=== PATIENT | female | born 1980 | race Caucasian/White ===

== ENCOUNTER 2017-02-02 01:36 | Observation (INO) | payer OTHER ==
[~2017-02-02] VITALS: Ht 160 cm; Wt 92.4 kg
--- NOTE | ~2017-02-02 | OR ---
PATIENT'S NAME: GOPI DA SILVA [facility] AGE: 37 Y [address] ROOM: [place] [address] LOCATION: GPED ADMIT DATE: 02/02/2017 OR/Procedure Report DISCHARGE DATE: FAMILY PHYSICIAN: Houston Cuellar ATTENDING PHYSICIAN: MICHAEL SKAGGS SURGEON: Rafael Colon MD WASHCOAT WIPER: DATE OF PROCEDURE: 02/02/2017 PREOPERATIVE DIAGNOSES: 1. Distal right ureter stone. 2. Urinary tract infection. POSTOPERATIVE DIAGNOSES: 1. Distal right ureter stone. 2. Urinary tract infection. PROCEDURES PERFORMED: 1. Cystoscopy. 2. Right stent placement. ANESTHESIA: General. COMPLICATIONS: None. INDICATION FOR PROCEDURE: The patient is a 37-year-old female with an 8.5 mm distal right ureter stone with urinary tract infection and low-grade fevers of 100. The patient has also had previous right ureter reimplant. DETAILS OF PROCEDURE: After informed consent was obtained, the patient was taken to the operating room. A general anesthetic was applied, and she was placed in a dorsal lithotomy position. The groin area was prepped and draped in the normal sterile fashion. Cystoscope was introduced into the urethra and bladder without difficulty. Because of her implant and current infection, it was difficult to locate her right ureteral orifice. After some time, I was able to locate the orifice and placed a yellow Flexi-Tip catheter in the orifice and advanced the guidewire up into the renal pelvis. I then removed the Flexi-Tip catheter and passed a 4.8 multi-length ureteral stent over the guidewire up into the renal pelvis. Radiographic imaging showed good positioning of the stent. The patient tolerated her procedure well and was transferred to the recovery room in stable condition. We will plan ureteroscopy in the future once her infection has resolved. PATIENT'S NAME: GOPI DA SILVA [facility] AGE: 37 Y [address] ROOM: [place] [address] LOCATION: GPED ADMIT DATE: 02/02/2017 OR/Procedure Report DISCHARGE DATE: FAMILY PHYSICIAN: Houston Cuellar ATTENDING PHYSICIAN: MICHAEL SKAGGS MD PAULETTE MANSFIELD/milly /[id number] CC: CLOVER Camara d: 02/02/17 1431 t: 02/17/17 1915, OPERATIVE SUMMARY
--- NOTE | ~2017-02-02 | HP ---
PATIENT'S NAME: GOPI DA SILVA [facility] AGE: 37 Y [address] ROOM: [id number] [place], [place] [address] LOCATION: GPED ADMIT DATE: 02/02/2017 History & Physical DISCHARGE DATE: FAMILY PHYSICIAN: Houston Cuellar ATTENDING PHYSICIAN: MICHAEL SKAGGS DATE OF SERVICE: CHIEF COMPLAINT: Abdominal pain. HISTORY OF PRESENT ILLNESS: This is a 37-year-old, female transferred here from [place] for higher level of care. This is a 37-year-old, female who says that yesterday around 1 p.m., when she was at her daughter's dodgeball tournament, she suddenly felt this diffuse abdominal pain, more intense in the periumbilical area associated with chills, and also left lower quadrant pain radiating to her left groin area. When she went home, she took her temperature. She was having low-grade fever at 100.2. She also felt nauseous, she vomited once without blood. She took her temperature again, it was 103.3. At the same time, she was also feeling some joint pain in her bilateral knees and also in bilateral hips. She just feels weak in general and also chills and the pain was getting worse in the periumbilical area and the left lower quadrant area with radiation to the left groin. That is why she went to the hospital in [place] and over there, a CT abdomen and pelvis with contrast showed moderate right-sided hydroureteronephrosis secondary to an 8.5 mm calculus, right distal ureter at the ureterovesical junction. Fatty infiltration in the liver. Prior cholecystectomy. Unremarkable air-filled appendix without surrounding inflammatory change and this was a preliminary report. The patient was sent here for higher level of care. The patient denies any other symptoms and currently her only complaint is the periumbilical and left lower quadrant pain with radiation to the left groin area. REVIEW OF SYSTEMS: As mentioned in the history of present illness. All other systems reviewed negative except as mentioned in the history of present illness. PAST MEDICAL HISTORY: Multiple bilateral nephrolithiasis in the past. According to the patient, this is a 17th time. She also had multiple stents placed in bilateral ureters from the nephrolithiasis in the past. The most recent stent was placed in the right ureter [place] [address] Tejada, according to the patient. At one point, the patient also had status post ureterovesical reimplantation due to urinary reflux according to the patient. PATIENT'S NAME: GOPI DA SILVA [facility] AGE: 37 Y [address] ROOM: [place] [address] LOCATION: GPED ADMIT DATE: 02/02/2017 History & Physical DISCHARGE DATE: FAMILY PHYSICIAN: Houston Cuellar ATTENDING PHYSICIAN: MICHAEL SKAGGS Crohn disease with daily diarrhea nonbloody. ALLERGIES: PENICILLIN, CIPROFLOXACIN, SULFA, AND BACTRIM WHICH ALL CAUSES HIVES WITH SEVERE SKIN BREAK OUT. MACROBID, WHICH CAUSES CROHN DISEASE FLARE. MORPHINE AND THE OTHER NARCOTICS WHICH CAUSES SEVERE RESPIRATORY DEPRESSION. HOME MEDICATIONS: Currently is being reconciled. SOCIAL HISTORY: The patient smokes about half pack per day for the last 4 years and still smokes. She denies any alcohol or any illegal drug use. PAST SURGICAL HISTORY: 1. Status post cholecystectomy. 2. Status post multiple bilateral nephrolithiasis and stents placed in the past. 3. Status post bilateral fallopian tubal ligation. FAMILY HISTORY: Father is healthy. Mother from myocardial infarction at the age 47. PHYSICAL EXAMINATION: VITAL SIGNS: At the time of my dictation, temperature 98.9, heart rate 90, respiration rate 22, blood pressure 105/69, MAP of 84, saturation 98% on room air. GENERAL APPEARANCE: Alert and oriented x3, in no acute distress. A very pleasant female. HEENT: Pupils are equally round and reactive to light. Extraocular muscles intact. Anicteric sclerae. Nasal turbinates are normal bilaterally. Moist oral mucosa. NECK: No JVD. No cervical lymphadenopathy. No neck stiffness. CARDIOVASCULAR: Regular rate and rhythm. Normal S1, S2. No murmur, no rubs, no gallops. RESPIRATORY: Clear. ABDOMEN: Obese, mildly tender to palpation in the periumbilical and in the left lower quadrant area, no abdominal rigidity, no rebound tenderness, bowel sounds present, could not appreciate any mass. No ascites. EXTREMITIES: No edema in upper or lower extremities. SKIN: No ulcer, no rash, no cyanosis. MUSCULOSKELETAL: Range of motion intact. No joint pain. No muscle pain. NEUROLOGIC: Grossly nonfocal. PATIENT'S NAME: GOPI DA SILVA [facility] AGE: 37 Y [address] ROOM: [address] [place], [place] [address] LOCATION: [facility] ADMIT DATE: 02/02/2017 History & Physical DISCHARGE DATE: FAMILY PHYSICIAN: Houston Cuellar ATTENDING PHYSICIAN: MICHAEL SKAGGS GENITOURINARY: No costovertebral angle tenderness to palpation. LABORATORY DATA: Currently, labs are pending. Laboratory from the outside facility: CBC, BMP, and liver function testing are unremarkable. White blood cells 8.3, hemoglobin 12.4, hematocrit 39.7, platelet 221. Creatinine 0.83, GFR more than 60. Glucose 103, calcium 8.3, total bilirubin 0.5, AST 11, ALT 15, alkaline phosphatase 69, CRP 3, total protein 6.7, albumin 3.4, globulin 3.3, amylase 38, lipase 113. Urinalysis show 150 urine blood, urine nitrite positive, 100 of urine leukocyte esterase, and 40-50 urine white blood cells. IMAGING STUDIES: As mentioned in the history of present illness. ASSESSMENT AND PLAN: 1. Regarding her moderate right-sided hydroureteronephrosis secondary to 8.5 mm calculus right distal ureter at the ureterovesical junction based on the preliminary report of the CT of the abdomen and pelvis with contrast on admission from the outside facility: Consult Urology in the morning. N.p.o. Likely, the patient will be taken to the operating room in the morning for stent. I will cover the patient with IV meropenem. I will check her blood culture 2 sets right now. Check her lactic acid and the procalcitonin and repeat labs again in the morning. N.p.o. Pain control with Demerol intramuscular given that this is only medication that the patient can tolerate and actually works for the patient. Tylenol as well for pain or fever. Avoid other narcotics given the patient developed a severe respiratory depression and also somnolence. IV fluid hydration with normal saline and D5 for maintenance rate. I will check a urinalysis again and also urine culture. Further plan depends on clinical course. 2. Regarding her Crohn disease: Currently not in flare. She chronically has diarrhea. This is not new. CT scan of the abdomen and pelvis from the outside facility did not show any colitis. 3. Regarding her deep vein thrombosis prophylaxis: Compression devices in anticipation for procedure in the morning. I will avoid any pharmacological deep vein thrombosis prophylaxis for now in anticipation for urological procedure in the morning. Time spent in care on the day of admission 40 minutes including chart review, interviewing, and examining the patient, addressing all the question and concern that the patient had, and going over the plan of care with the nurse and with the patient. PATIENT'S NAME: GOPI DA SILVA [facility] AGE: 37 Y [address] ROOM: [place] [address] LOCATION: [facility] ADMIT DATE: 02/02/2017 History & Physical DISCHARGE DATE: FAMILY PHYSICIAN: Houston Cuellar ATTENDING PHYSICIAN: MICHAEL SKAGGS MD LEONCIO LOVELL/milly /[id number] D: [id number] T: [id number] HISTORY & PHYSICAL
--- NOTE | ~2017-02-02 | CON ---
PATIENT'S NAME: GOPI DA SILVA [facility] AGE: 37 Y [address] ROOM: [place] [address] LOCATION: GPED ADMIT DATE: 02/02/2017 Consultation DISCHARGE DATE: FAMILY PHYSICIAN: Houston Cuellar ATTENDING PHYSICIAN: MICHAEL SKAGGS DATE OF CONSULTATION: 02/02/2017 HISTORY OF PRESENT ILLNESS: The patient is a 37-year-old female transferred from [place] with an 8.5 mm distal right ureteric stone at the ureterovesical junction. The patient had the acute onset of right flank pain with low-grade temperature of 100 yesterday afternoon. The patient was seen in the emergency room again where abdominal and pelvic CT scan revealed a stone with moderate right-sided hydronephrosis. The patient's urine was also nitrite positive. She has a long history of nephrolithiasis status post multiple ESWLs with Dr. Tejada. Since the patient has obstructive stone with infection, I discussed cystoscopy with stent placement with ureteroscopy in the future. Risks and benefits were discussed. PAST MEDICAL HISTORY: Again, significant for multiple bilateral nephrolithiasis, and Crohn disease. PAST SURGICAL HISTORY: Include ureterovesical reimplant, bilateral ESWLs, stone extraction with stent placements, cholecystectomy, and tubal ligation. MEDICATIONS: Include, 1. NicoDerm patch. 2. Florastor 250 mg twice daily. ALLERGIES: PENICILLIN, CIPROFLOXACIN, SULFA WHICH RESULTS IN HIVES WITH SEVERE SKIN BREAKOUT. MACROBID WHICH CAUSES FLARE-UPS OF HER CROHN DISEASE. MORPHINE AND OTHER NARCOTICS WOULD CAUSE SEVERE RESPIRATORY DEPRESSION. SOCIAL HISTORY: The patient smokes half a pack of cigarettes a day for the past 4 years. The patient does not consume alcohol. REVIEW OF SYSTEMS: Negative other than her history of stone disease. PHYSICAL EXAMINATION: PATIENT'S NAME: GOPI DA SILVA [facility] AGE: 37 Y [address] ROOM: [place] [address] LOCATION: GPED ADMIT DATE: 02/02/2017 Consultation DISCHARGE DATE: FAMILY PHYSICIAN: Houston Cuellar ATTENDING PHYSICIAN: MICHAEL SKAGGS GENERAL: Middle-aged female in physical distress. LUNGS: Clear bilaterally. CARDIAC: Regular rhythm and rate. ABDOMEN: Soft with normoactive bowel sounds throughout. There is right lower flank tenderness with palpation. SKIN: Within normal limits. NEURO: Grossly intact. IMPRESSION: A 37-year-old female with a long history of nephrolithiasis with an 8.5 mm distal right ureteral stone with infected urine. PLAN: We will take to OR urgently for cystoscopy and right stent placement. We will plan ureteroscopy and stone extraction or laser lithotripsy in the future. MD PAULETTE MANSFIELD/milly /[id number] d: 02/02/17 1004 t: 02/17/178, CONSULTATION REPORT
[~2017-02-02 01:36] MED LIST: CPAP INH; CYMBALTA60 MG PO; NORCO 5-325 MG1 TAB PO; PRILOSEC40 MG PO; TYLENOL EXTRA500 MG PO
--- NOTE | 2017-02-02 02:50 | NUR ---
Patient reports that abdominal pain began increasing on Friday afternoon. She begain experiencing increased temperatures and nausea. Patient also reports burning with urination. Patient went to the [facility] emergency room where she had a CT and found to have a large stone. Patient was transfered to [facility] by private auto. Significant history of chrons disease, neck fusion, and other abdominal issues related to chrons.
[2017-02-02 04:29] LABS: BILIRUBIN URINE NEGATIVE (NEGATIVE); BLOOD URINE 25 /UL (NEGATIVE); COLOR URINE YELLOW (YELLOW); GLUCOSE URINE NEGATIVE (NEGATIVE); KETONE URINE NEGATIVE (NEGATIVE); LEUKOCYTES URINE 500 /UL (NEGATIVE); NITRITE URINE POSITIVE (NEGATIVE); PROTEIN URINE 30 mg/dL (NEGATIVE); SPEC GRAVITY URINE 1.015 (1.003-1.035); TURBIDITY URINE 3+ (CLEAR); UROBILINOGEN URINE NORMAL (NORMAL)
[2017-02-02 04:36] LABS: BACTERIA URINE FEW (NEGATIVE); WBC URINE PACKED FIELD #/HPF (NEGATIVE)
[2017-02-02 05:00] LABS: HEMATOCRIT 37.4 % (33.0-46.0); HEMOGLOBIN 11.6 g/dL (11.0-15.0); MCH 27.1 pg (27.0-34.0); MCV 87.4 fl (83.0-98.0); MPV 8.9 fl (9.4-12.4); PLATELET COUNT 192 K/uL (150-450); RBC 4.28 M/uL (3.50-5.50); RDW-CV 14.5 % (11.9-14.6); WBC 6.1 K/uL (4.0-11.0)
[2017-02-02 05:11] LABS: PTT 29 SECONDS (25-32)
[2017-02-02 05:23] LABS: ALBUMIN 3.1 gm/dL (3.5-5.0); ALK PHOS 65 IU/L (33-138); ALT 19 IU/L (12-78); ANION GAP 11.8 (10.0-19.0); AST 16 IU/L (10-40); BLOOD UREA NITROGEN 12 mg/dL (6-24); CHLORIDE 109 mMol/L (96-110); CO2 23 mMol/L (22-32); CREATININE 0.8 mg/dL (0.5-1.1); ESTIMATED GFR (MDRD EQUATION) > 60; MAGNESIUM 1.9 mg/dL (1.3-2.6); PHOSPHORUS 2.5 mg/dL (2.5-4.9); POTASSIUM 3.8 mMol/L (3.7-5.1); SODIUM 140 mMol/L (135-145); TOTAL BILIRUBIN 0.6 mg/dL (0.0-1.5); TOTAL PROTEIN 6.2 g/dL (6.0-8.4)
[2017-02-02 05:30] LABS: ABSOLUTE NEUTROPHIL CT (ANC) 5.3 K/uL (1.8-7.8); BANDED NEUTROPHIL # 0.7 K/uL (0.0-0.1); BANDED NEUTROPHILS % 11 %; LYMPHOCYTE # 0.4 K/uL (0.8-4.0); LYMPHOCYTE % 6 %; MONOCYTE # 0.5 K/uL (0.0-1.0); SEGMENTED NEUTROPHIL # 4.6 K/uL (1.8-7.8); SEGMENTED NEUTROPHIL % 75 %
--- NOTE | 2017-02-02 08:30 | NUR ---
Significant Event: Patient alert and oriented. IM demerol given for pain. IV antibiotics started and fluids infusing without complications. Up ad aldo. VSS on room air. Daughter at bedside. Pleasant and cooperative with cares. Follow up: urology consult today
--- NOTE | 2017-02-02 14:38 | NUR ---
Significant event: Went to surgery this am for stent placement. Voided once since returned for surgery of light red urine withoout any stones. Nucynta 50 mg for pain with relief obtained. Has tolerated clear liquids and regular diet.
--- NOTE | 2017-02-03 05:43 | NUR ---
Significant Event: AAOX4. REG DIET. PIV RAC IVF INFUSING @ 100ML/HR. PHENERGAN ADMINISTERED X2 C/O NAUSEA. LAST AT 421. NUCYNTA ADMINISTERED X2 C/O PAIN 05/19, LAST AT 229. PT SBA WITH ACTIVITIES BUT GOES TO BATHROOM UNASSISTED. WILL LET STAFF KNOW WHEN SHE VOIDS SO URINE CAN BE STRAINED. 925 OUT, YELLOW URINE WITH SMALL BRIGHT RED BLOOD CLOTS, NO STONES NOTED OF YET. 800 IN PO. 913/IV. NO BM'S, BUT RELEASING FLATUS. Follow up: PAIN. URINE FOR STONES
[2017-02-03 06:26] LABS: BASOPHIL % 0.2 %; EOSINOPHIL % 0.5 %; HEMATOCRIT 33.6 % (33.0-46.0); HEMOGLOBIN 10.2 g/dL (11.0-15.0); IMMATURE GRANULOCYTE % 0.3 %; LYMPHOCYTE # 1.1 K/uL (0.8-4.0); LYMPHOCYTE % 18.5 %; MCH 26.8 pg (27.0-34.0); MCHC 30.4 gm/dL (32.0-36.5); MCV 88.2 fl (83.0-98.0); MONOCYTE # 0.9 K/uL (0.0-1.0); MONOCYTE % 14.3 %; MPV 9.5 fl (9.4-12.4); NEUTROPHIL # (ANC) 4.1 K/uL (1.8-7.8); NEUTROPHIL % 66.2 %; NRBC % 0 /100WBC (0-0.00); PLATELET COUNT 168 K/uL (150-450); RBC 3.81 M/uL (3.50-5.50); RDW-CV 14.1 % (11.9-14.6); WBC 6.2 K/uL (4.0-11.0)
[2017-02-03 06:47] LABS: ANION GAP 13.1 (10.0-19.0); BLOOD UREA NITROGEN 8 mg/dL (6-24); CALCIUM 8.1 mg/dL (8.5-10.5); CHLORIDE 111 mMol/L (96-110); CO2 23 mMol/L (22-32); CREATININE 0.6 mg/dL (0.5-1.1); ESTIMATED GFR (MDRD EQUATION) > 60; POTASSIUM 4.1 mMol/L (3.7-5.1); SODIUM 143 mMol/L (135-145)
[2017-02-03] MEDS ORDERED: NUCYNTA50 MG PO (14:01)
[2017-02-03] MEDS ORDERED: LEVAQUIN500 MG PO (14:02)
[2017-02-03] MEDS ORDERED: PHENERGAN25 M1 PO (14:02)
--- NOTE | 2017-02-03 14:15 | NUR ---
PT SCREENED D/T MST. WT CONSISTENT W/ PREVIOUS ADMIT. EATING 100% OF MEALS. WILL ASSIST NEEDED.
[2017-02-03] MEDS ORDERED: FLORASTOR250 MG PO (14:51)
[2017-02-14] MEDS ORDERED: KEFLEX500 MG PO (12:08)
== END 2017-02-03 15:10 | disposition disaster alternative care site (69) ==
LOC: GPED 01:36
PROVIDERS: ADMIT Internal Medicine
PROC: 0T768DZ Dilation of Right Ureter with Intraluminal Device, Via Natural or Artificial Opening Endoscopic (ICD-10-PCS; principal; 2017-02-02)
DX: N13.2 Hydronephrosis with renal and ureteral calculous obstruction (principal); N39.0 Urinary tract infection, site not specified; F17.210 Nicotine dependence, cigarettes, uncomplicated; Z90.49 Acquired absence of other specified parts of digestive tract; Z88.0 Allergy status to penicillin; Z88.1 Allergy status to other antibiotic agents; Z88.2 Allergy status to sulfonamides; Z88.5 Allergy status to narcotic agent; Z87.442 Personal history of urinary calculi; Z98.51 Tubal ligation status; Z98.890 Other specified postprocedural states
CPT/HCPCS: C1769; C2617; G0378; J1170; J2175; J2185; J2405; J2550; J7040; J7042; J7050; J7120

== ENCOUNTER 2017-02-16 19:09 | Observation (INO) | payer OTHER ==
[~2017-02-16] VITALS: Ht 160 cm; Wt 90.6 kg
--- NOTE | ~2017-02-16 | HP ---
PATIENT'S NAME: GOPI DA SILVA [facility] AGE: 37 Y [address] ROOM: [place] [address] LOCATION: [facility] ADMIT DATE: 02/16/2017 History & Physical DISCHARGE DATE: FAMILY PHYSICIAN: Houston Cuellar ATTENDING PHYSICIAN: Jose Luis Porras DATE OF SERVICE: CHIEF COMPLAINT: Right ureterolithiasis. HISTORY OF PRESENTING ILLNESS: This 37-year-old, white female with history of Crohn disease and recent episode of right nephrolithiasis, was brought to [facility] Emergency Room with recurrent right-sided flank pain. She had been admitted on 02/02/2017 under similar circumstances. She was seen by Urology and taken for cysto and stent placement. This was performed without any complications. She was, however, treated concomitantly with antibiotics for a urinary infection and stent removal had been postponed. She was scheduled to have cysto with stent removal tomorrow. Over the course of the day, she developed progressive right-sided flank pain, which has been intractable. She presented to the emergency room where fentanyl provides only minimal relief. A CT scan revealed the presence of an 8 mm stone at the right UVJ, which is actually adjacent to the stent. The stent appears to be in good position. She does complain of some nausea, but has not vomited. She denies fevers, chills or sweats. Denies headaches, dizziness, or lightheadedness. No chest pain. No significant shortness of breath. No other abdominal pain. Stools have been loose frequent which as per her usual. PAST MEDICAL HISTORY: ALLERGIES: PENICILLIN, CIPRO, SULFA, BACTRIM, MORPHINE. ILLNESSES: 1. Crohn disease. 2. Ureterolithiasis. 3. Obesity. CURRENT MEDICATION: Florastor 250 mg p.o. b.i.d. PATIENT'S NAME: GOPI DA SILVA [facility] AGE: 37 Y [address] ROOM: [place] [address] LOCATION: [facility] ADMIT DATE: 02/16/2017 History & Physical DISCHARGE DATE: FAMILY PHYSICIAN: Houston Cuellar ATTENDING PHYSICIAN: Jose Luis Porras FAMILY HISTORY: Significant for CO in her mother who at the age of 47. Father is healthy. SOCIAL HISTORY: She is and lives in [place], [place]. She has a 15-pack year history of smoking tobacco, currently about a pack of cigarettes per day. She denies any illicit drug use. Only rare alcohol use. REVIEW OF SYSTEMS: As per HPI. All other organ systems reviewed and are negative. OBJECTIVE: VITAL SIGNS: Temperature 99.2, pulse 99, respirations 18, blood pressure 147/95, O2 saturation 99% on room air. Weight is 90.7 kilos. GENERAL: She is anxious, but cooperative, lying in the bed, no acute distress. SKIN: Supple, pink, warm, dry. No obvious rashes. She has tattoos about the chest and extremities. There are also multiple piercing without any complicating features. HEENT: Otherwise, normocephalic. Sclerae nonicteric. Pupils equal, round, and reactive to light and accommodation. Extraocular movements appear intact. Nasal turbinates normal in appearance. Oropharynx clear. Mucous membranes are pink and moist. NECK: Supple. No masses or adenopathy. No thyromegaly. No JVD. CHEST: Wall is symmetrical. HEART: Regular without murmurs. LUNGS: Clear bilaterally. No wheezes or crackles. ABDOMEN: Soft and obese. Diffusely tender over the right abdomen and flank. No masses or hepatosplenomegaly. Bowel sounds are present. and RECTAL: Not done. EXTREMITIES: Display no significant clubbing, cyanosis, edema. NEUROLOGICAL: Anxious, but no focal deficits. LABORATORY AND X-RAY DATA: CBC showed a white blood cell count 8.1, hemoglobin is 12.8, hematocrit 40.8, platelets 301. Chemistries reveal BUN and creatinine of 13 and 0.8 respectively. Sodium and potassium 141 and 3.9. Chloride and CO2 are 109 and 24. AST and ALT 13 and 17. Bilirubin is 0.3. Glucose is 95. C-reactive protein was elevated at 1.48. Lactate was normal at 0.7. Procalcitonin less than 0.05. Urinalysis significant for 20-50 wbc's and full field rbc's. ASSESSMENT AND PLAN: 1. Right ureterolithiasis status post stent placement. We will admit for observation and work on pain control. Continue with some supportive PATIENT'S NAME: [facility] AGE: 37 Y [address] ROOM: [facility] [place], [place] [address] LOCATION: [facility] ADMIT DATE: 02/16/2017 History & Physical DISCHARGE DATE: FAMILY PHYSICIAN: Houston Cuellar ATTENDING PHYSICIAN: Jose Luis Porras careog including IV fluids and symptomatic relief of nausea with Zofran. We will use IV fentanyl for relief of pain and oral Percocet. We will give a single dose of Toradol this evening in anticipation of likely cystoscopy with stent removal tomorrow. We will consult, Dr. Colon in the morning. The case has already been discussed with Dr. Colon by the emergency room physician. 2. Crohn disease, mildly symptomatic. We will keep her n.p.o. after midnight tonight and provide some symptomatic measures. Plan to continue with probiotic therapy. She might benefit from outpatient Gastroenterology evaluation. 3. Pyuria. We will resume antibiotic therapy with IV Rocephin tonight. Follow up on culture results when available. 4. Tobaccoism. Discussed smoking cessation. She is in the contemplative phase. We will use nicotine transdermal patch while she is inpatient. 5. Deep venous thrombosis prophylaxis. We will give a single dose of heparin subcu tonight, but hold off on any additional heparin or Lovenox in light of possible cystoscopy and stent retrieval in the morning. MD DOMENICO NARANJO/milly /[id number] D: [id number] T: [id number] HISTORY & PHYSICAL
--- NOTE | ~2017-02-16 | ER ---
PATIENT'S NAME: GOPI DA SILVA [facility] AGE: 37 Y [address] ROOM: [address] [place], [place] [address] [place] [facility] [place]: 02/16/[place] ER/Outpatient Report DISCHARGE DATE: FAMILY PHYSICIAN: Houston Cuellar ATTENDING PHYSICIAN: Jose Luis Porras Admission date and time documented on the medical record. I saw the patient at 1930 hours. CHIEF COMPLAINT: Right flank pain. HISTORY OF PRESENT ILLNESS: This is a 37-year-old female who comes in with right flank pain that started around 2200 hours last night, progressively worsened. It got to the point where she could not stand the pain, presented to the emergency room for evaluation. The patient is scheduled for cystoscopy and possible lithotripsy tomorrow. By history 3 weeks ago, the patient had right flank pain secondary to a distal 8.5 cm right ureteral stone. She had cystoscopy with right stent placement at that time. Apparently, had a significant infection, so they had been able to remove the stent and do lithotripsy until this week. She got 1 g Rocephin on Friday and scheduled for cystoscopy and lithotripsy today or tomorrow. She states that she was to report to the hospital tomorrow morning. The patient has noted that she has had increased hematuria along with the pain. Also does have a long history of nephrolithiasis with ureteral stones. She has had multiple cystoscopies and stent placements. No lightheadedness, dizziness, syncope, or near syncope. No headache or eyes, ears, nose, throat, neck, or spine pain. No fall or trauma. No recent colds, coughs, flus, fever, chills, or sweats. No chest pain or shortness of breath. Pain across her lower abdomen along with a right flank pain. Has nausea, but no vomiting or diarrhea. No urinary symptomatology other than the hematuria. No joint or muscle swelling, redness, or pain. No skin eruptions or rash. No history of endocrine problems, neuro changes, or psych issues. HOME MEDICATIONS: See attached medication list. ALLERGIES: PENICILLIN, SULFA, CIPRO, MACROBID, AND MORPHINE SULFATE. SOCIAL HISTORY: The patient smokes a half pack of cigarettes per day. Occasional intake of alcohol. SIGNIFICANT PAST MEDICAL HISTORY: PATIENT'S NAME: GOPI DA SILVA [facility] AGE: 37 Y [address] ROOM: [address] [place], [place] [address] [place] [facility] [place]: 02/16/2017 ER/Outpatient Report DISCHARGE DATE: FAMILY PHYSICIAN: Houston Cuellar ATTENDING PHYSICIAN: Jose Luis Porras Nephrolithiasis, pyelonephritis, Crohn disease, and tobacco abuse. OPERATIONS: Tubal ligation, multiple cystoscopies with multiple stent placements, several lithotripsies, cholecystectomy, and right ureterovesical reimplantation. REVIEW OF SYSTEMS: All systems reviewed by me are negative with the exception of those discussed in the history of present illness. PHYSICAL EXAMINATION: VITAL SIGNS: Temperature 99.2 tympanic, pulse 99, respirations 18, blood pressure 147/95, and O2 saturation on room air is 99%. HEAD: Normocephalic. EYES, EARS, NOSE, THROAT: Clear. Mucous membranes moist. NECK: Negative. SPINE: Negative. LUNGS: Clear. HEART: Regular. Pulses are palpable. No chest wall or ribcage pain to palpation. ABDOMEN: Soft. Right flank pain and right lower quadrant abdominal pain to palpation. No noted abdominal distention. No true guarding or rigidity. No rebound tenderness. No palpable masses or abnormal masses palpable. EXTREMITIES: Intact. NEUROVASCULAR: Intact. SKIN: Clear. No skin eruptions or rash. LABORATORY DATA: White count was 8100, 62 segs, 26 lymphs, 9 monos, 2 eos, 1 baso. Hemoglobin is 12.8 with hematocrit of 40.8 and platelet count was 301,000. Sedimentation rate was normal at 17. CMS was normal except for low calcium of 8.4. CRP was 1.48. Procalcitonin was less than 0.05. Lactate was 0.7. Urine showed 20-50 whites, full field reds, 2-5 epithelial cells, negative bacteria per high- powered field, negative nitrites on dipstick. CT scan of the abdomen and pelvis with renal stone protocol showed the right ureteral stent in good position, did have 7-8 mm stone distal right ureter about 2-3 cm out of the bladder. CT scan was read by Radiology, see dictated transcribed report. EMERGENCY DEPARTMENT COURSE: I did give the patient IV normal saline fluids. Gave her fentanyl IV for pain and Zofran IV for nausea and vomiting. IMPRESSION: 1. Right flank pain secondary to a distal right ureteral stone measuring 7-8 mm with the right ureteral stent in place. PATIENT'S NAME: GOPI DA SILVA [facility] AGE: 37 Y [address] ROOM: [place] [address] [place] [facility] [place]: 02/16/2017 ER/Outpatient Report DISCHARGE DATE: FAMILY PHYSICIAN: Houston Cuellar ATTENDING PHYSICIAN: Jose Luis Porras 2. History of nephrolithiasis with recent pyelonephritis. 3. Tobacco abuse. 4. History of Crohn's disease. PLAN: I did discuss this patient with Dr. Colon, urologist. Dr. Colon thought that she needed to be in the hospital. He asked me to call hospitalist to have her admitted. I did talk with Dr. Porras, hospitalist. We will admit the patient to MICU for pain control. Dr. Colon will take the patient to operation tomorrow morning. She is to be n.p.o. after midnight. Discussion ensued with the patient concerning my findings and recommendations, she understands. MD LEROY STINSON/modl /[id number] d: 02/16/172316 t: 02/17/17 181, OUTPATIENT REPORT
--- NOTE | ~2017-02-16 | OR ---
PATIENT'S NAME: GOPI DA SILVA [facility] AGE: 37 Y [address] ROOM: [place] [address] [place]ATION: [facility] [place] ADMIT DATE: 02/16/2017 OR/Procedure Report DISCHARGE DATE: FAMILY PHYSICIAN: Houston Cuellar ATTENDING PHYSICIAN: Jose Luis Porras SURGEON: Zac Trejo MD CENTRIFUGAL EXTRACTOR OPERATOR: DATE OF PROCEDURE: 02/17/2017 PREOPERATIVE DIAGNOSIS: Right distal ureter stone. POSTOP DIAGNOSIS: Right distal ureter stone. PROCEDURE PERFORMED: Cystoscopy, stent removal, right laser lithotripsy with stone extraction. ANESTHESIA: General. COMPLICATIONS: None. INDICATION FOR PROCEDURE: The patient is a 37-year-old female with extensive history of nephrolithiasis. The patient is status post cystoscopy with right stent placement with delayed ureteroscopy secondary to cystitis at the time of her stent placement. DETAILS OF PROCEDURE: After informed consent obtained, the patient taken to the operating room. A general anesthetic was applied. She was placed in a dorsal lithotomy position. The groin area was prepped and draped in normal sterile fashion. Cystoscope was introduced into the urethra and bladder without difficulty. The stent was identified in the right ureteral orifice, engaged with grasping forceps and partially removed. A guidewire was then passed through the stent up into the renal pelvis. The stent was then completely removed. The ureteroscope was then introduced into the distal ureter where the stone was clearly identified. The holmium laser fiber was then introduced and the stone was fragmented into multiple smaller pieces. I then used a secure basket to remove the stone fragments, which were sent to lab for analysis. Following this, the ureteroscope was removed, the cystoscope was reintroduced, and the bladder was empty. The patient tolerated her procedure well and was transferred to recovery room in good condition. ZAC TREJO MD PATIENT'S NAME: GOPI AD SILVA [facility] AGE: 37 Y [address] ROOM: [place] [address] LOCATION: [facility] [place] ADMIT DATE: 02/16/2017 OR/Procedure Report DISCHARGE DATE: FAMILY PHYSICIAN: Houston Cuellar ATTENDING PHYSICIAN: Jose Luis Porrsa/milly /[id number] CC: CLOVER Camara d: 02/17/17 1516 t: 02/17/17 1915, OPERATIVE SUMMARY
--- NOTE | ~2017-02-16 | DS ---
[facility] 37 Y [address] ROOM: [address] [place], [place] [address] [place] [facility] [place]: 02/16/2017 Discharge Summary DISCHARGE DATE: 02/18/2017 FAMILY PHYSICIAN: Houston Cuellar ATTENDING PHYSICIAN: Jose Luis Porras PRINCIPAL DIAGNOSES: 1. Right ureter stone. 2. History of Crohn's disease. SECONDARY DIAGNOSIS: 1. Tobaccoism. PRINCIPAL PROCEDURES: Cystoscopy with stent removal, laser lithotripsy and stone extraction performed by Dr. Rafael Colon of Urology. HOSPITAL COURSE: Please reference the admitting data to the history and physical dictated by Dr. Jose Luis Porras for further information. Briefly, a 37-year-old female with significant right flank pain, who had recently undergone a cystoscopy with stone manipulation and left ureteral stent placement, was scheduled to have the stent removed for unfortunately having significant increased pain, was evaluated in the emergency room and was found to have an 8 mm distal ureter stone with mild hydronephrosis. She was admitted under the Hospitalist Service with symptomatic management with IV pain medicine. Prior to hospitalization had been treated with Keflex for a urinary tract infection and was prophylactically placed on Rocephin. Preoperative evaluation in anticipation of cystoscopy was completed. Urology consultation was done with Dr. Rafael Colon. She was kept n.p.o. and taken to surgery on the next day, February 17, 2017, where she underwent a cystoscopy with stent removal and laser lithotripsy and stone extraction. In the postoperative phase, she still required IV analgesia and nausea and vomiting. Symptomatic management was obtained, and she did improve overnight. She was transitioned to oral pain medicines and tolerated them well. She was tolerating diet. She was voiding without complication. The remaining of her home chronic conditions were maintained on her home medicines. She was given extensive education on cessation of tobacco use. Follow up of her Crohn's disease and management of her history of renal stones. LABORATORY RESULTS: Initial CBC showed a white blood cell count 8.1, hemoglobin of 12.8, hematocrit of 40.8, platelet count of 301. Chemistry panel showed a glucose of 95, BUN of 13, creatinine 0.8, sodium 141, potassium PATIENT'S NAME: [facility] AGE: 37 Y [address] ROOM: [address] [place], [place] [address] [place]: [facility] [place] DATE: 02/16/2017 Discharge Summary DISCHARGE DATE: 02/18/2017 FAMILY PHYSICIAN: Houston Cuellar ATTENDING PHYSICIAN: Jose Luis Porras 3.9, chloride of 109, CO2 of 24. Liver functions were normal. Sedimentation rate was 17. Urinalysis was obtained showing 500 leukocytes with some microscopic hematuria with a count of 250. Urine culture was not obtained due to dipstick method being negative. RADIOLOGIC IMAGING DATA: CT of the abdomen and pelvis done on February 16, 2017, showed an 8 mm right distal ureter stone with mild hydronephrosis. The ureteral stent was in place and appeared to be in good position. DISCHARGE MEDICINES: 1. Tylenol 1000 mg p.o. every day as needed for pain. 2. Percocet 5/325 mg 2 tablets p.o. every 6 hours as needed. 3. Prilosec 40 mg p.o. every day. 4. Phenergan 25 mg p.o. every 6 hours as needed for nausea. 5. A prescription for the scheduled two narcotics was written, for Percocet 5/325 mg 1-2 tablets p.o. every 4 to 6 hours as needed for pain with dispensed number of 20 tablets. DISCHARGE INSTRUCTIONS: The patient will be discharged to home with followup to include Dr. Rafael Colon in 2 weeks. She also needs to follow up with CLOVER Cuellar within the next day as previously scheduled. It was recommended for him to evaluate laboratory findings of a CBC and a BMP at that time. Diet, as tolerated. Activity, As tolerated. Cessation of smoking was educated. Total time arranging discharge was less than 30 minutes. Thank you for allowing us to participate in the care of this patient while at [facility]. BRANDEN PADILLA APRN, APRN FOR MD NOEL SANTAMARIA/milly /[id number] CC: CLOVER Camara PATIENT'S NAME: GOPI DA SILVA [facility] AGE: 37 Y [address] ROOM: [address] [address] [place]: [facility] [place]MIT DATE: 02/16/2017 Discharge Summary DISCHARGE DATE: 02/18/2017 FAMILY PHYSICIAN: Houston Cuellar ATTENDING PHYSICIAN: Jose Luis Porras MD d: t: 02/19/17 0445, DISCHARGE SUMMARY
[~2017-02-16 19:09] MED LIST changes: +FLORASTOR250 MG PO; +KEFLEX500 MG PO; +LEVAQUIN500 MG PO; +NUCYNTA50 MG PO; +PHENERGAN25 M1 PO
[2017-02-16 19:43] LABS: BILIRUBIN URINE NEGATIVE (NEGATIVE); BLOOD URINE 250 /UL (NEGATIVE); GLUCOSE URINE NEGATIVE (NEGATIVE); KETONE URINE NEGATIVE (NEGATIVE); LEUKOCYTES URINE 500 /UL (NEGATIVE); NITRITE URINE NEGATIVE (NEGATIVE); PROTEIN URINE 100 mg/dL (NEGATIVE); SPEC GRAVITY URINE 1.015 (1.003-1.035); UROBILINOGEN URINE 1 mg/dL (NORMAL)
[2017-02-16 19:54] LABS: COLOR URINE YELLOW (YELLOW); TURBIDITY URINE 3+ (CLEAR)
[2017-02-16 19:54] LABS: BASOPHIL # 0.1 K/uL (0.0-0.2); BASOPHIL % 0.6 %; EOSINOPHIL # 0.2 K/uL (0.0-0.5); EOSINOPHIL % 2.1 %; HEMOGLOBIN 12.8 g/dL (11.0-15.0); IMMATURE GRANULOCYTE % 0.5 %; LYMPHOCYTE # 2.1 K/uL (0.8-4.0); LYMPHOCYTE % 26.1 %; MCH 26.9 pg (27.0-34.0); MCV 85.7 fl (83.0-98.0); MONOCYTE # 0.7 K/uL (0.0-1.0); MPV 9.2 fl (9.4-12.4); NEUTROPHIL % 61.7 %; NRBC % 0 /100WBC (0-0.00); RBC 4.76 M/uL (3.50-5.50); WBC 8.1 K/uL (4.0-11.0)
[2017-02-16 19:55] LABS: RBC URINE FULL FIELD #/HPF (NEGATIVE); WBC URINE 20-50 #/HPF (NEGATIVE)
[2017-02-16 19:56] LABS: BACTERIA URINE NEGATIVE (NEGATIVE)
[2017-02-16 20:07] LABS: HEMATOCRIT 40.8 % (33.0-46.0); MCHC 31.4 gm/dL (32.0-36.5); PLATELET COUNT 301 K/uL (150-450)
[2017-02-16 20:10] LABS: ALBUMIN 3.6 gm/dL (3.5-5.0); ALK PHOS 81 IU/L (33-138); ALT 17 IU/L (12-78); ANION GAP 11.9 (10.0-19.0); AST 13 IU/L (10-40); BLOOD UREA NITROGEN 13 mg/dL (6-24); CALCIUM 8.4 mg/dL (8.5-10.5); CHLORIDE 109 mMol/L (96-110); CO2 24 mMol/L (22-32); CREATININE 0.8 mg/dL (0.5-1.1); ESTIMATED GFR (MDRD EQUATION) > 60; POTASSIUM 3.9 mMol/L (3.7-5.1); SODIUM 141 mMol/L (135-145); TOTAL BILIRUBIN 0.3 mg/dL (0.0-1.5); TOTAL PROTEIN 7.1 g/dL (6.0-8.4)
[2017-02-18] MEDS ORDERED: PERCOCET 5-3251 EACH PO (11:56)
== END 2017-02-18 13:55 | disposition disaster alternative care site (69) ==
LOC: GMED 19:09 → GMSU 20:43
PROVIDERS: Emergency Medicine; ADMIT Family Medicine
PROC: 0TF68ZZ Fragmentation in Right Ureter, Via Natural or Artificial Opening Endoscopic (ICD-10-PCS; principal; 2017-02-17)
DX: N13.2 Hydronephrosis with renal and ureteral calculous obstruction (principal); N30.90 Cystitis, unspecified without hematuria; E66.9 Obesity, unspecified; Z88.0 Allergy status to penicillin; Z88.2 Allergy status to sulfonamides; Z88.1 Allergy status to other antibiotic agents; F17.210 Nicotine dependence, cigarettes, uncomplicated; Z87.19 Personal history of other diseases of the digestive system; Z90.49 Acquired absence of other specified parts of digestive tract; Z98.51 Tubal ligation status; Z98.890 Other specified postprocedural states; Z79.899 Other long term (current) drug therapy
CPT/HCPCS: C1769; G0378; J0696; J0780; J1100; J1170; J1644; J1885; J2250; J2405; J2550; J3010; J7030; J7050